=== PATIENT | male | born 1945 | race Caucasian/White ===

== ENCOUNTER 2017-02-09 22:31 | Emergency (ER) | payer SELFPAY ==
[2017-02-09] MEDS ORDERED: Lactated Ringers 1,000 ML IV ONE (22:41)
[2017-02-09] MEDS ORDERED: Sodium Chloride 0.9% 10 ML Syringe FLUSH PRN (22:41)
[2017-02-09 23:36] LABS: CHLORIDE,CL 105 mmol/L (98-107); SODIUM,NA 141 mmol/L (136-145)
--- NOTE | 2017-02-09 23:49 | EDM.PDOC ---
ED HPI GENERAL MEDICAL PROBLEM - General Chief Complaint: Gastrointestinal Problem Stated Complaint: diarrhea x 5 days Time Seen by Provider: 02/09/17 22:41 Source of Information: Reports: Patient History Limitations: Reports: No Limitations - History of Present Illness INITIAL COMMENTS - FREE TEXT/NARRATIVE: Patient reports having diarrhea for the last 5 days. This is why he is coming in. Reports some weakness, as well as some fatigue. He denies any nausea or vomiting. He is a mechanic industrial truck and thinks maybe he had a bad sandwich at a [employer] as sharp within 8 hours of having a sandwich she began having gastrointestinal distress with diarrhea. He states he's been taking some Pepto- Bismol over the last couple of days. He denies any fever, chills, headaches, shortness of breath, chest pain or pressure. He is a one half to one pack per day smoker. States that he rarely drinks alcohol with his stated intake is one or 2 beers per month. His occupation is a mechanic industrial truck and states that his primary provider is usually Jody Rosales but doesn't really follow up on a regular basis. He does state that he has high blood pressure, high cholesterol, diabetes. He states that he takes hydrochlorothiazide, metformin, furosemide, Victoza, and atorvastatin. He also states he takes a medication for his high blood pressure volodymyr unable to remember what it is. He denies being around anybody with similar symptoms within the last week but since he is a mechanic industrial truck he has contact with multiple people who may or may not know they're sick. His appearance is pale. Onset Date: 02/03/17 Duration: Improving Location: Reports: Abdomen Associated Symptoms: Reports: Other (diarrhea) Treatments PORTRAIT ARTIST: Reports: Other Medication(s) (pepto-bismol) ED ROS GENERAL - Review of Systems Review Of Systems: See Below Constitutional: Reports: No Symptoms HEENT: Reports: No Symptoms Respiratory: Reports: No Symptoms Cardiovascular: Reports: No Symptoms Endocrine: Reports: No Symptoms GI/Abdominal: Reports: Black Stool, Diarrhea : Reports: No Symptoms Musculoskeletal: Reports: No Symptoms Skin: Reports: No Symptoms Neurological: Reports: Dizziness Psychiatric: Reports: No Symptoms Hematologic/Lymphatic: Reports: No Symptoms Immunologic: Reports: No Symptoms ED EXAM, GI/ABD - Physical Exam Exam: See Below Exam Limited By: No Limitations General Appearance: Alert, WD/WN, Mild Distress Eyes: Bilateral: EOMI Ears: Normal TMs Nose: Normal Inspection, Normal Mucosa, No Blood Throat/Mouth: Normal Inspection, Normal Lips, Normal Teeth, Normal Gums, Normal Oropharynx, Normal Voice, No Airway Compromise Head: Atraumatic, Normocephalic Neck: Lymphadenopathy (L), Lymphadenopathy (R) (cervical lymph node enlargement) Respiratory/Chest: No Respiratory Distress, Lungs Clear, Normal Breath Sounds, No Accessory Muscle Use, Chest Non-Tender Cardiovascular: Normal Peripheral Pulses, Regular Rate, Rhythm, No Edema, No Gallop, No JVD, No Murmur, No Rub GI/Abdominal Exam: Normal Bowel Sounds, Soft, Non-Tender, No Organomegaly, No Distention, No Abnormal Bruit, No Mass, Pelvis Stable Back Exam: Normal Inspection, Full Range of Motion, NT Extremities: Normal Inspection, Normal Range of Motion, Non-Tender, Normal Capillary Refill, No Pedal Edema Neurological: Alert, Oriented, CN II-XII Intact, Normal Cognition, Normal Gait, Normal Reflexes, No Motor/Sensory Deficits Psychiatric: Normal Affect, Normal Mood Skin Exam: Warm, Dry, Intact, Normal Color, No Rash Course - Orders/Labs/Meds Orders: Active Orders 24 hr Category Date Time Status OCCULT BLD GASTRIC Stat Lab 02/09/17 23:50 Ordered ROTAVIRUS ANTIGEN [MREF] Stat Lab 02/09/17 22:42 Uncollected Sodium Chloride 0.9% [Saline Flush] Med 02/09/17 22:41 Ordered 10 ml FLUSH ASDIRECTED PRN Saline Lock Insert [OM.PC] Routine Oth 02/09/17 22:41 Ordered Medication Orders Sodium Chloride (Saline Flush) 10 ml FLUSH ASDIRECTED PRN PRN Reason: Keep Vein Open Labs: Laboratory Tests 02/09/17 02/09/17 Range/Units 22:41 22:41 WBC 18.2 H (4.0-10.0) x10^3/uL RBC 3.38 L (4.5-6.0) x10^6/uL Hgb 7.5 L* (14.0-18.0) g/dL Hct 25.6 L (40.0-52.0) % MCV 75.7 L (78.0-93.0) fL MCH 22.2 L (26.0-32.0) pg MCHC 29.3 L (32.0-36.0) g/dL RDW Coeff of Sam 16.5 H (10.0-15.0) % Plt Count 434 H (130-400) x10^3/uL Add Manual Diff Yes Neutrophils % (Manual) 54 (50-80) % Band Neutrophils % 14 H (0-6) % Lymphocytes % (Manual) 11 L (25-50) % Atypical Lymphs % 6 H (0) % Monocytes % (Manual) 6 (2-11) % Eosinophils % (Manual) 8 H (0-4) % Basophils % (Manual) 1 (0-1) % Platelet Estimate Increased H Hypochromasia 2+ moderate H Poikilocytosis 1+ slight H Anisocytosis 1+ slight H Microcytosis 1+ slight H Sodium 141 (136-145) mmol/L Potassium 2.9 L* (3.5-5.1) mmol/L Chloride 105 (98-107) mmol/L Carbon Dioxide 24 (21-32) mmol/L BUN 17 (7-18) mg/dL Creatinine 1.4 H (0.70-1.30) mg/dL Est Cr Clr Drug Dosing TNP Estimated GFR (MDRD) 50 Glucose 146 H (74-106) mg/dL Calcium 7.6 L (8.5-10.1) mg/dL Corrected Calcium 8.64 (8.5-10.1) mg/dL Magnesium 1.1 L (1.8-2.4) mg/dL Total Bilirubin 0.2 (0.2-1.0) mg/dL AST 15 (15-37) U/L ALT 21 (16-63) U/L Alkaline Phosphatase 86 (46-116) U/L Total Protein 6.2 L (6.4-8.2) g/dL Albumin 2.7 L (3.4-5.0) g/dL Globulin 3.5 Albumin/Globulin Ratio 0.77 Meds: Medications Generic Name Dose Route Start Last Admin Trade Name Freq PRN Reason Stop Dose Admin Sodium Chloride 10 ml 02/09/17 22:41 Saline Flush FLUSH ASDIRECTED PRN Keep Vein Open Discontinued Medications Generic Name Dose Route Start Last Admin Trade Name Freq PRN Reason Stop Dose Admin Lactated Ringer's 1,000 mls @ 999 mls/hr 02/09/17 22:41 02/09/17 22:45 Ringers, Lactated IV 02/09/17 23:41 999 mls/hr .BOLUS ONE Administration Magnesium Chloride 64 mg 02/10/17 00:03 Mag-64 PO 02/10/17 00:04 ONETIME ONE Potassium Chloride 40 meq 02/10/17 00:03 Klor-Con 10 PO 02/10/17 00:04 ONETIME ONE - Re-Assessments/Exams Free Text/Narrative Re-Assessment/Exam: 02/10/17 00:12 Patient given oral magnesium and potassium before departure for low magnesium of 1.1, low potassium of 2.9 Departure - Departure Time of Disposition: 00:32 Disposition: DC/Tfer to Acute Hospital 02 Condition: Good Clinical Impression: GI bleed - Discharge Information Instructions: Nausea and Vomiting, Adult, [id number] Referrals: Jody Rosales, AGILE JAVA DEVELOPER [Primary Care Provider] - Forms: ED Department Discharge, Interfacility Transfer EMTALA ED Communication - ED Communication Date/Time Date: 02/10/17 Time Called: 23:55 - Discussed Case With (1) Discussed Case With (1): Admitting Provider (Dr. Cordova at [facility] in [place] was given report and is the accepting provider.) - My Orders Last 24 Hours: My Active Orders 02/09/17 22:41 Sodium Chloride 0.9% [Saline Flush] 10 ml FLUSH ASDIRECTED PRN Saline Lock Insert [OM.PC] Routine 02/09/17 22:42 ROTAVIRUS ANTIGEN [MREF] Stat 02/09/17 23:50 OCCULT BLD GASTRIC Stat - Assessment/Plan Last 24 Hours: My Active Orders 02/09/17 22:41 Sodium Chloride 0.9% [Saline Flush] 10 ml FLUSH ASDIRECTED PRN Saline Lock Insert [OM.PC] Routine 02/09/17 22:42 ROTAVIRUS ANTIGEN [MREF] Stat 02/09/17 23:50 OCCULT BLD GASTRIC Stat
[2017-02-10] MEDS ORDERED: Potassium Chloride 10 MEQ Tab.ER PO ONE (00:03)
[2017-02-10] MEDS ORDERED: Magnesium Chloride 64 MG Tab.ER PO ONE (00:03)
== END 2017-02-10 00:50 | disposition short-term general hospital (02) ==
LOC: VM.ED 22:31
DX: K92.2 Gastrointestinal hemorrhage, unspecified (principal); F17.210 Nicotine dependence, cigarettes, uncomplicated
CPT/HCPCS: 80053; 83735; 85025; 96360; 99285; A9270; J7120; 99284-GF

== ENCOUNTER 2019-11-30 10:55 | Emergency (ER) | payer MEDICAID ==
[2019-11-30] MEDS ORDERED: Sodium Chloride 0.9% 10 ML Syringe FLUSH PRN (11:18)
--- NOTE | 2019-11-30 11:24 | EDM.PDOC ---
ED HPI GENERAL MEDICAL PROBLEM - General Chief Complaint: Chest Pain Stated Complaint: CHEST PAIN/SOB Time Seen by Provider: 11/30/19 11:00 Source of Information: Reports: Patient History Limitations: Reports: No Limitations - History of Present Illness INITIAL COMMENTS - FREE TEXT/NARRATIVE: Patient comes emergency department today from the clinic for further evaluation of shortness of breath chest pressure and tightness. This patient relates over the past 2 to 3 months he has slowly had increasing shortness of breath with physical exertion. 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 This is slowly been getting worse over the past 2 to 3 months. He has had about a 10 to 12 pound weight gain in the last 2 to 3 months as well. Over the past couple of days he has some tightness over his chest primarily with physical exertion. He has a pack-a-day smoker since he was 16 years of age. He has a dry hacking nonproductive cough. No fever no chills. No palpitations weakness dizziness lightheadedness. No abdominal pain nausea or vomiting. No hematuria dysuria or urinary frequency. He denies any black or tarry stools no bloody stools. He is on chronic iron supplementation for chronic iron deficiency anemia although he has never been evaluated with a colonoscopy. NO COVID exposure NO COVID symptoms. - Related Data Allergies Allergy/AdvReac Type Severity Reaction Status Date / Time bee venom protein (honey bee) Allergy Severe Anaphylactic Verified 11/30/19 11:22 Shock levofloxacin [From Levaquin] Allergy Intermediate Hives Verified 11/30/19 11:22 lisinopril AdvReac Mild Cough Verified 11/30/19 11:22 Home Meds: Home Meds Aspirin [Halfprin] 81 mg PO DAILY 02/17/17 [History] Ferrous Gluconate 1 tab PO DAILY 02/17/17 [History] Furosemide [Lasix] 20 mg PO DAILY 02/17/17 [History] Multivitamin with Minerals [Multivitamins with Minerals] 1 tab PO DAILY 02/17/17 [History] Potassium 99 mg PO ASDIRECTED 02/17/17 [History] amLODIPine [Norvasc] 10 mg PO DAILY 02/17/17 [History] metFORMIN HCl [Glucophage] 1,000 mg PO BIDMEALS 02/17/17 [History] FLUoxetine HCl [Prozac] 20 mg PO DAILY 01/12/19 [History] Folic Acid 0.4 mg PO DAILY 01/12/19 [History] hydroCHLOROthiazide [Hydrochlorothiazide] 12.5 mg PO DAILY 01/12/19 [History] Past Medical History HEENT History: Reports: None Cardiovascular History: Reports: Hypertension, Other (See Below) Other Cardiovascular History: lower leg edema Respiratory History: Reports: SOB Other Respiratory History: Smoker Gastrointestinal History: Reports: GERD Genitourinary History: Reports: None Musculoskeletal History: Reports: Back Pain, Chronic Neurological History: Reports: None Psychiatric History: Reports: Depression Endocrine/Metabolic History: Reports: Diabetes, Type II Hematologic History: Reports: Anemia, Iron Deficiency, Other (See Below) Other Hematologic History: hypomagnesia. hypopotassemia Immunologic History: Reports: None Oncologic (Cancer) History: Reports: None Dermatologic History: Reports: None - Infectious Disease History Infectious Disease History: Reports: None - Past Surgical History Head Surgeries/Procedures: Reports: None HEENT Surgical History: Reports: None Cardiovascular Surgical History: Reports: None GI Surgical History: Reports: None Male Surgical History: Reports: None Neurological Surgical History: Reports: None Musculoskeletal Surgical History: Reports: None Oncologic Surgical History: Reports: None Dermatological Surgical History: Reports: None Social & Family History - Tobacco Use Tobacco Use Status *Q: Current Every Day Tobacco User Years of Tobacco use: 55 Packs/Tins Daily: 1 - Caffeine Use Caffeine Use: Reports: Coffee, Energy Drinks, Tea Caffeine Use Comment: 3 cups of coffe a day ED ROS GENERAL - Review of Systems Review Of Systems: Comprehensive ROS is negative, except as noted in HPI. ED EXAM, GENERAL - Physical Exam Exam: See Below Exam Limited By: No Limitations General Appearance: Alert, WD/WN, Mild Distress (He has only able to speak in 5- 6 word sentences and is minimally dyspneic), Obese Eye Exam: Bilateral Eye: EOMI Ears: Normal External Exam Nose: Normal Inspection Throat/Mouth: Normal Inspection Head: Atraumatic, Normocephalic Neck: Normal Inspection, Supple, Non-Tender, Full Range of Motion Respiratory/Chest: No Respiratory Distress, Normal Breath Sounds, No Accessory Muscle Use, Chest Non-Tender, Crackles (Fine bibasilar crackles.), Wheezing (Expiratory bilaterally minimal). No: Rhonchi, Accessory Muscle Use Cardiovascular: Normal Peripheral Pulses, Regular Rate, Rhythm GI/Abdominal: Normal Bowel Sounds, Soft, Non-Tender (Male) Exam: Deferred Rectal (Males) Exam: Deferred Back Exam: Normal Inspection, Full Range of Motion Extremities: Normal Inspection, Pedal Edema (2+ pitting bilaterally) Neurological: Alert, Oriented, Normal Cognition, No Motor/Sensory Deficits Psychiatric: Normal Affect, Normal Mood Skin Exam: Warm, Dry, Intact, Normal Color, No Rash #1 Interpretation EKG Date: 11/30/19 Time: 11:05 Rhythm: NSR Rate (Beats/Min): 87 Leighton: Normal P-Wave: Present QRS: Normal ST-T: Normal QT: Normal Comparison: NA - No Prior EKG Course - Vital Signs Last Recorded V/S: Last Vital Signs Temp 98.1 F 11/30/19 13:26 Pulse 81 11/30/19 13:26 Resp 16 11/30/19 13:26 BP 159/88 H 11/30/19 13:26 Pulse Ox 99 11/30/19 13:26 - Orders/Labs/Meds Orders: Active Orders 24 hr Category Date Time Status EKG Documentation Completion [RC] STAT Care 11/30/19 11:12 Active RT Aerosol Therapy [RC] ASDIRECTED Care 11/30/19 11:28 Active Sodium Chloride 0.9% [Saline Flush] Med 11/30/19 11:18 Active 10 ml FLUSH ASDIRECTED PRN Blood Transfusion Reflex Orders [OM.PC] Routine Oth 11/30/19 11:47 Ordered Peripheral IV Insertion Adult [OM.PC] Stat Oth 11/30/19 11:12 Ordered Transfuse RBC [Transfuse Red Blood Cells] [COMM] Stat Oth 11/30/19 11:58 Ordered Medication Orders Sodium Chloride (Saline Flush) 10 ml FLUSH ASDIRECTED PRN PRN Reason: Keep Vein Open Labs: Laboratory Tests 11/30/19 11/30/19 11/30/19 Range/Units 11:30 11:30 11:30 WBC 14.0 H (4.0-10.0) x10^3/uL RBC 2.33 L (4.5-6.0) x10^6/uL Hgb 5.8 L* D (14.0-18.0) g/dL Hct 20.2 L (40.0-52.0) % MCV 86.7 D (78.0-93.0) fL MCH 24.9 L (26.0-32.0) pg MCHC 28.7 L (32.0-36.0) g/dL RDW Coeff of Sam 19.5 H (10.0-15.0) % Plt Count 463 H (130-400) x10^3/uL Add Manual Diff Yes Neutrophils % (Manual) 77 (50-80) % Lymphocytes % (Manual) 7 L (25-50) % Monocytes % (Manual) 4 (2-11) % Eosinophils % (Manual) 9 H (0-4) % Basophils % (Manual) 3 H (0-1) % Nucleated RBCs 1 (0-5) /100WBC Platelet Estimate Increased H Anisocytosis 2+ moderate H Macrocytosis 3+ marked H Spherocytes 2+ moderate H PT (9.5-12.3) SEC INR (2.0-3.5) APTT (25.6-32.8) SEC Sodium 139 (136-145) mmol/L Potassium 3.3 L (3.5-5.1) mmol/L Chloride 102 (98-107) mmol/L Carbon Dioxide 29 (21-32) mmol/L Anion Gap 11.3 (10-20) mmol/L BUN 27 H (7-18) mg/dL Creatinine 2.6 H D (0.70-1.30) mg/dL Est Cr Clr Drug Dosing TNP Estimated GFR (MDRD) 24 Glucose 126 H (74-106) mg/dL Calcium 8.4 L (8.5-10.1) mg/dL Corrected Calcium 9.52 (8.5-10.1) mg/dL Total Bilirubin 0.2 (0.2-1.0) mg/dL AST 14 L (15-37) U/L ALT 21 (16-63) U/L Alkaline Phosphatase 75 (46-116) U/L POC Troponin I (0.00-0.08) ng/mL NT-Pro-B Natriuret Pep 2124 H (<=125) pg/mL Total Protein 5.9 L (6.4-8.2) g/dL Albumin 2.6 L (3.4-5.0) g/dL Globulin 3.3 Albumin/Globulin Ratio 0.79 Stool Occult Blood (NEGATIVE) Blood Type A POSITIVE Gel Antibody Screen Negative Crossmatch See Detail 11/30/19 11/30/19 11/30/19 Range/Units 11:30 11:36 11:57 WBC (4.0-10.0) x10^3/uL RBC (4.5-6.0) x10^6/uL Hgb (14.0-18.0) g/dL Hct (40.0-52.0) % MCV (78.0-93.0) fL MCH (26.0-32.0) pg MCHC (32.0-36.0) g/dL RDW Coeff of Sam (10.0-15.0) % Plt Count (130-400) x10^3/uL Add Manual Diff Neutrophils % (Manual) (50-80) % Lymphocytes % (Manual) (25-50) % Monocytes % (Manual) (2-11) % Eosinophils % (Manual) (0-4) % Basophils % (Manual) (0-1) % Nucleated RBCs (0-5) /100WBC Platelet Estimate Anisocytosis Macrocytosis Spherocytes PT 10.0 (9.5-12.3) SEC INR 0.9 L (2.0-3.5) APTT 25.1 L (25.6-32.8) SEC Sodium (136-145) mmol/L Potassium (3.5-5.1) mmol/L Chloride (98-107) mmol/L Carbon Dioxide (21-32) mmol/L Anion Gap (10-20) mmol/L BUN (7-18) mg/dL Creatinine (0.70-1.30) mg/dL Est Cr Clr Drug Dosing Estimated GFR (MDRD) Glucose (74-106) mg/dL Calcium (8.5-10.1) mg/dL Corrected Calcium (8.5-10.1) mg/dL Total Bilirubin (0.2-1.0) mg/dL AST (15-37) U/L ALT (16-63) U/L Alkaline Phosphatase (46-116) U/L POC Troponin I 0.03 (0.00-0.08) ng/mL NT-Pro-B Natriuret Pep (<=125) pg/mL Total Protein (6.4-8.2) g/dL Albumin (3.4-5.0) g/dL Globulin Albumin/Globulin Ratio Stool Occult Blood positive (NEGATIVE) Blood Type Gel Antibody Screen Crossmatch Meds: Medications Generic Name Dose Route Start Last Admin Trade Name Freq PRN Reason Stop Dose Admin Sodium Chloride 10 ml 11/30/19 11:18 Saline Flush FLUSH ASDIRECTED PRN Keep Vein Open Discontinued Medications Generic Name Dose Route Start Last Admin Trade Name Freq PRN Reason Stop Dose Admin Albuterol/Ipratropium 3 ml 11/30/19 11:28 11/30/19 11:40 Duoneb 3.0-0.5 Mg/3 Ml NEB 11/30/19 11:29 3 ml ONETIME ONE Administration Furosemide 20 mg 11/30/19 12:28 11/30/19 12:38 Lasix IV 11/30/19 12:29 20 mg ONETIME ONE Administration Pantoprazole Sodium 80 mg 11/30/19 12:04 11/30/19 12:14 Protonix Iv IVPUSH 11/30/19 12:05 80 mg ONETIME ONE Administration - Radiology Interpretation Free Text/Narrative:: Chest x-ray per radiology shows cardiomegaly with borderline central vascular congestion. - Re-Assessments/Exams Free Text/Narrative Re-Assessment/Exam: 11/30/19 12:11 EKG shows a normal sinus rhythm without ST elevation or depression when reviewed extemporaneously by myself. His hemoglobin came back at 5.8. He has had a longstanding history of problems with iron deficiency in the past. Although he has never been worked up for his iron deficiency he has never had a colonoscopy. He relates that he has no black or tarry stools but he does take iron supplementation daily. His troponin is negative at 0.02. His chest x-ray shows cardiomegaly with borderline central vascular congestion. We will type and screen him for 1 unit of PRBCs at this time. Protonix 80 mg IV push. Lasix 20mg IVP. His Hemoccult is positive. His creatinine today is 2.6. Reviewing his charts in [facility] he had a creatinine of 2.43 3 months ago. There is no documentation of chronic kidney disease in his chart and the patient is unaware of any chronic kidney disease. 1 year ago his creatinine was 1.79. Protonix 80mg IVP Troponin negative. Pro-BNP mildly elevated. With his multiple issues going on with the anemia severe, lower GI bleed and CKD I called and spoke with DR. Galloway at [facility] in and she would like the patient transferred to . I called and spoke with Dr. Shin at [facility] in [place] in the ED. HPI ER COURSE findings and concerns were relayed to her verbally over the phone. Her questions were answered and she accepted him in transfer to [facility] in [place] with no new order. I discussed the plan of care with the patient and his . They are comfortable with this plan and their questions were answered. Departure - Departure Time of Disposition: 12:24 Disposition: DC/Tfer to [facility] 02 Clinical Impression: Lower GI bleed Anemia Qualifiers: Anemia type: unspecified type Qualified Code(s): D64.9 - Anemia, unspecified CKD (chronic kidney disease) stage 3, GFR 30-59 ml/min Qualifiers: Chronic kidney disease stage 3 subtype: stage 3b (GFR 30-44) Qualified Code(s): N18.32 - Chronic kidney disease, stage 3b CHF (congestive heart failure) Qualifiers: Heart failure type: high output Qualified Code(s): I50.83 - High output heart failure - Discharge Information Referrals: Umm Oneill, PATTERN TECHNICIAN [Primary Care Provider] - Forms: ED Department Discharge, Interfacility Transfer [facility] Sepsis Event Note (ED) - Evaluation Sepsis Screening Result: No Definite Risk - Focused Exam Vital Signs: Vital Signs Temp Temp Pulse Resp BP Pulse Ox Pulse Ox 11/30/19 13:26 98.1 F 81 16 159/88 H 99 11/30/19 13:11 97.8 F 80 18 158/75 H 96 11/30/19 12:58 97.9 F 78 20 159/61 H 96 11/30/19 12:12 88 20 144/53 H 92 L 11/30/19 12:00 95 11/30/19 11:00 98.3 F 86 24 H 162/55 H 95 - My Orders Last 24 Hours: My Active Orders 11/30/19 11:12 EKG Documentation Completion [RC] STAT Peripheral IV Insertion Adult [OM.PC] Stat 11/30/19 11:18 Sodium Chloride 0.9% [Saline Flush] 10 ml FLUSH ASDIRECTED PRN 11/30/19 11:28 RT Aerosol Therapy [RC] ASDIRECTED 11/30/19 11:47 Blood Transfusion Reflex Orders [OM.PC] Routine 11/30/19 11:58 Transfuse RBC [Transfuse Red Blood Cells] [COMM] Stat - Assessment/Plan Last 24 Hours: My Active Orders 11/30/19 11:12 EKG Documentation Completion [RC] STAT Peripheral IV Insertion Adult [OM.PC] Stat 11/30/19 11:18 Sodium Chloride 0.9% [Saline Flush] 10 ml FLUSH ASDIRECTED PRN 11/30/19 11:28 RT Aerosol Therapy [RC] ASDIRECTED 11/30/19 11:47 Blood Transfusion Reflex Orders [OM.PC] Routine 11/30/19 11:58 Transfuse RBC [Transfuse Red Blood Cells] [COMM] Stat Assessment:: Anemia severe, Lower GI bleed but also probably a component of chronic kidney disease. Lower GI bleed not any history of colonoscopy Congestive heart failure most likely due to high-output failure. CKD stage 3. Plan: Transfer to [facility] for further care management and work up.
[2019-11-30] MEDS ORDERED: Albuterol/Ipratropium 3.0-0.5 MG/3 ML Neb Soln NEB ONE (11:28)
--- NOTE | 2019-11-30 11:48 | CR ---
[id number] RAD/RAD Chest PA or AP 1V EXAM: FRONTAL CHEST INDICATION: SHORTNESS OF BREATH. COMPARISON: December 17, 2011. DISCUSSION: There is new cardiomegaly with borderline central vascular congestion. No definite infiltrates, but evaluation is somewhat limited by body habitus and portable technique. IMPRESSION: 1. Cardiomegaly with borderline central vascular congestion. Dago Mock MD 11/30/19 1146 Thank you for allowing us to participate in the care of your patient.
[2019-11-30 12:04] LABS: CHLORIDE,CL 102 mmol/L (98-107); SODIUM,NA 139 mmol/L (136-145)
[2019-11-30] MEDS ORDERED: Pantoprazole 40 MG Vial IVPUSH ONE (12:04)
[2019-11-30 12:09] LABS: ANION GAP 11.3 mmol/L (10-20)
[2019-11-30 12:22] LABS: PTT,PARTIAL THROMBOPLSTIN TIME 25.1 SEC (25.6-32.8)
[2019-11-30] MEDS ORDERED: Furosemide 20 MG/2 ML VIAL IV ONE (12:28)
== END 2019-11-30 14:00 | disposition short-term general hospital (02) ==
LOC: VM.ED 10:55
DX: K92.2 Gastrointestinal hemorrhage, unspecified (principal); I13.0 Hypertensive heart and chronic kidney disease with heart failure and stage 1 through stage 4 chronic kidney disease, or unspecified chronic kidney disease; I50.83 High output heart failure; N18.32 Chronic kidney disease, stage 3b; D63.1 Anemia in chronic kidney disease; E11.22 Type 2 diabetes mellitus with diabetic chronic kidney disease; F17.210 Nicotine dependence, cigarettes, uncomplicated; F32.9 Major depressive disorder, single episode, unspecified; E66.9 Obesity, unspecified; Z91.030 Bee allergy status; Z88.1 Allergy status to other antibiotic agents; Z79.82 Long term (current) use of aspirin; Z88.8 Allergy status to other drugs, medicaments and biological substances; Z79.84 Long term (current) use of oral hypoglycemic drugs
CPT/HCPCS: 36415; 36430; 71045; 80053; 82274; 83880; 84484; 85025; 85610; 85730; 86850; 86900; 86901; 86920; 86922; 93005; 93010; 94640; 96374; 96375; 99284; 99285-25; C9113; J1940; J7620-GY; P9016

== ENCOUNTER 2020-06-28 01:20 | Emergency (ER) | payer MEDICAID ==
[2020-06-28] MEDS ORDERED: Furosemide 20 MG/2 ML VIAL IV ONE (01:39)
[2020-06-28] MEDS ORDERED: Albuterol/Ipratropium 3.0-0.5 MG/3 ML Neb Soln NEB ONE (01:40)
--- NOTE | 2020-06-28 01:45 | EDM.PDOC ---
ED HPI GENERAL MEDICAL PROBLEM - General Chief Complaint: Respiratory Problem Stated Complaint: Shortness of breath, leg edema Time Seen by Provider: 06/28/20 01:25 Source of Information: Reports: Patient, Family History Limitations: Reports: No Limitations - History of Present Illness INITIAL COMMENTS - FREE TEXT/NARRATIVE: Patient presents with increased shortness of breath over the last 3 days patient attributes this to the increased swelling in his feet. He states today he just started having increased shortness of breath but got worse this afternoon and then to the night. He said overall he had been doing pretty well this weekend and actually came in and got his iron here through transfusion the other day with no issues. He says he takes his Lasix 5 mg twice a day like clockwork but he has noticed the swelling has not moved in the last couple of days and is actually gotten worse in the last 24 hours. Positive for ROA orthopnea which is chronic negative PND he denies any chest pain no fever cough He does not have home oxygen nor does he have any breathing treatments even though he does have a history of COPD and CHF. He has no other complaints at this time Duration: Day(s): Severity: Moderate Improves with: Reports: Other (Breathing treatments) Worsens with: Reports: Movement Context: Reports: Activity Associated Symptoms: Reports: Shortness of Breath. Denies: Confusion, Chest Pain, Cough, cough w sputum, Diaphoresis, Fever/Chills, Malaise, Nausea/Vomiting, Syncope, Weakness - Related Data Allergies Allergy/AdvReac Type Severity Reaction Status Date / Time bee venom protein (honey bee) Allergy Severe Anaphylactic Verified 06/28/20 01:38 Shock levofloxacin [From Levaquin] Allergy Intermediate Hives Verified 06/28/20 01:38 lisinopril AdvReac Mild Cough Verified 06/28/20 01:38 Home Meds: Home Meds Aspirin [Halfprin] 81 mg PO BEDTIME 02/17/17 [History] Furosemide [Lasix] 20 mg PO DAILY 02/17/17 [History] Multivitamin with Minerals [Multivitamins with Minerals] 1 tab PO DAILY 02/17/17 [History] Potassium 75 mg PO Q48H 02/17/17 [History] amLODIPine [Norvasc] 10 mg PO DAILY 02/17/17 [History] FLUoxetine HCl [Prozac] 40 mg PO DAILY 01/12/19 [History] Folic Acid 0.4 mg PO DAILY 01/12/19 [History] Ascorbate Calcium [Vitamin C] 500 mg PO BID 06/12/20 [History] Ferrous Sulfate 325 mg PO TIDMEALS 06/12/20 [History] Krill Oil 500 mg PO DAILY 06/12/20 [History] Magnesium 400 mg PO Q48H 06/12/20 [History] Nicotine [Nicoderm CQ] 7 mg TD DAILY 06/12/20 [History] hydrALAZINE [Apresoline] 50 mg PO TID 06/19/20 [History] Past Medical History HEENT History: Reports: None Cardiovascular History: Reports: Heart Failure, High Cholesterol, Hypertension, Other (See Below) Other Cardiovascular History: lower leg edema, left ventricular hypertrophy, diastolic dysfunction, bilat. carotid bruits Respiratory History: Reports: SOB, Other (See Below) Other Respiratory History: former smoker, snoring, mucopurulent chronic bronchitis Gastrointestinal History: Reports: GERD, Other (See Below) Other Gastrointestinal History: gastroenteritis Genitourinary History: Reports: None, Renal Calculus, Other (See Below) Other Genitourinary History: CKD stage 4 Musculoskeletal History: Reports: Back Pain, Chronic Neurological History: Reports: None Psychiatric History: Reports: Depression Endocrine/Metabolic History: Reports: Diabetes, Type II, Hypokalemia, Obesity/BMI 30+ Hematologic History: Reports: Anemia, Iron Deficiency, Other (See Below) Other Hematologic History: hypomagnesia. hypopotassemia Immunologic History: Reports: Other (See Below) Other Immunologic History: leukocytosis Oncologic (Cancer) History: Reports: Basal Cell Carcinoma Dermatologic History: Reports: None - Infectious Disease History Infectious Disease History: Reports: None - Past Surgical History Head Surgeries/Procedures: Reports: None HEENT Surgical History: Reports: None Cardiovascular Surgical History: Reports: None GI Surgical History: Reports: None Male Surgical History: Reports: None Neurological Surgical History: Reports: None Musculoskeletal Surgical History: Reports: None Oncologic Surgical History: Reports: None Dermatological Surgical History: Reports: None Social & Family History - Caffeine Use Caffeine Use: Reports: Coffee, Energy Drinks, Tea Caffeine Use Comment: 3 cups of coffe a day ED ROS GENERAL - Review of Systems Review Of Systems: See Below Constitutional: Reports: No Symptoms HEENT: Reports: No Symptoms Respiratory: Reports: Shortness of Breath. Denies: Wheezing, Pleuritic Chest Pain, Cough, Sputum, Hemoptysis Cardiovascular: Reports: Dyspnea on Exertion, Edema, Orthopnea. Denies: No Symptoms, Chest Pain, Blood Pressure Problem, Lightheadedness, Palpitations, PND , Syncope Endocrine: Reports: No Symptoms GI/Abdominal: Reports: No Symptoms : Reports: No Symptoms Musculoskeletal: Reports: No Symptoms Skin: Reports: No Symptoms Neurological: Reports: No Symptoms Psychiatric: Reports: No Symptoms Hematologic/Lymphatic: Reports: No Symptoms Immunologic: Reports: No Symptoms ED EXAM, GENERAL - Physical Exam Exam: See Below Exam Limited By: No Limitations General Appearance: Alert, WD/WN, No Apparent Distress, Other (No respiratory distress noted patient is talking 15 20 word sentences) Eye Exam: Bilateral Eye: EOMI, Normal Inspection, PERRL Ears: Normal External Exam, Hearing Grossly Normal Nose: Normal Inspection, Normal Mucosa, No Blood Throat/Mouth: Normal Inspection, Normal Lips, Normal Teeth, Normal Gums, Normal Oropharynx, Normal Voice, No Airway Compromise Neck: Normal Inspection, Supple, Non-Tender, Full Range of Motion Respiratory/Chest: No Respiratory Distress, No Accessory Muscle Use, Chest Non- Tender, Other (Patient does not have any wheezing but he has some mild scattered bilateral rales). No: Lungs Clear, Normal Breath Sounds Cardiovascular: Normal Peripheral Pulses, Regular Rate, Rhythm, No Gallop, No JVD, No Murmur, No Rub, Other (3+ bilateral pedal edema). No: No Edema GI/Abdominal: Normal Bowel Sounds, Soft, Non-Tender, No Organomegaly, No Distention, No Abnormal Bruit Extremities: Normal Inspection, Normal Range of Motion, Non-Tender, Normal Capillary Refill, Pedal Edema. No: No Pedal Edema Neurological: Alert, Oriented, CN II-XII Intact, Normal Cognition, Normal Gait Psychiatric: Normal Affect, Normal Mood Skin Exam: Warm, Dry, Intact, Normal Color, No Rash #1 Interpretation EKG Date: 06/28/20 Rhythm: NSR [place]: Normal P-Wave: Present QRS: Normal ST-T: Normal QT: Normal (nsr - acute) Course - Vital Signs Text/Narrative:: Called [facility] spoke with Dr. Juli Oscar in the ER he will accept the patient secondary to acute CHF BNP at 1392 CKD secondary to elevated BUN and creatinine at 39/3.3 last baseline here of creatinine was 2.6 patient has chronic anemia hemoglobin today is 6.7 last baseline we have here is 5.8 last time he left [facility] he said he was in the 12's Patient was rechecked after Lasix IV and nebulizers looks much better feels much better Last Recorded V/S: Last Vital Signs Temp 36.9 C 06/28/20 01:20 Pulse 120 H 06/28/20 01:20 Resp 24 H 06/28/20 01:20 BP 162/65 H 06/28/20 01:20 Pulse Ox 98 06/28/20 01:20 - Orders/Labs/Meds Orders: Active Orders 24 hr Category Date Time Status EKG 12 Lead [EKG Documentation Completion] [RC] URGENT Care 06/28/20 01:39 Active RT Aerosol Therapy [RC] ASDIRECTED Care 06/28/20 01:40 Active Chest 1V Frontal [CR] Stat Exams 06/28/20 01:38 Taken CORONAVIRUS COVID-19 RAPID [MOLEC] Routine Lab 06/28/20 02:45 Ordered Labs: Laboratory Tests 06/28/20 06/28/20 06/28/20 Range/Units 01:28 01:28 01:28 WBC 13.0 H (4.0-10.0) x10^3/uL RBC 2.30 L (4.5-6.0) x10^6/uL Hgb 6.7 L* (14.0-18.0) g/dL Hct 21.7 L (40.0-52.0) % MCV 94.3 H D (78.0-93.0) fL MCH 29.1 (26.0-32.0) pg MCHC 30.9 L (32.0-36.0) g/dL RDW Coeff of Sam 16.9 H (10.0-15.0) % Plt Count 420 H (130-400) x10^3/uL Add Manual Diff Yes Neutrophils % (Manual) 68 (50-80) % Lymphocytes % (Manual) 18 L (25-50) % Monocytes % (Manual) 8 (2-11) % Eosinophils % (Manual) 6 H (0-4) % Hypersegmented Neuts Rare H Platelet Estimate Increased H Giant Platelets Rare H Polychromasia 1+ slight H Hypochromasia 1+ slight H Anisocytosis 2+ moderate H Macrocytosis 1+ slight H Target Cells Rare Sodium 140 (136-145) mmol/L Potassium 4.2 (3.5-5.1) mmol/L Chloride 103 (98-107) mmol/L Carbon Dioxide 24 (21-32) mmol/L Anion Gap 17.2 H (5-15) mmol/L BUN 39 H (7-18) mg/dL Creatinine 3.3 H* (0.70-1.30) mg/dL Est Cr Clr Drug Dosing TNP Estimated GFR (MDRD) 19 Glucose 133 H (70-99) mg/dL Calcium 8.6 (8.5-10.1) mg/dL NT-Pro-B Natriuret Pep 1392 H (<=125) pg/mL Meds: Medications Discontinued Medications Generic Name Dose Route Start Last Admin Trade Name Freq PRN Reason Stop Dose Admin Albuterol/Ipratropium 3 ml 06/28/20 01:40 06/28/20 01:22 Albuterol/Ipratropium 3.0-0.5 Mg/3 Ml Neb Soln NEB 06/28/20 01:41 3 ml ONETIME ONE Administration Furosemide 20 mg 06/28/20 01:39 06/28/20 01:45 Furosemide 20 Mg/2 Ml Vial IV 06/28/20 01:40 20 mg ONETIME ONE Administration Departure - Departure Time of Disposition: 02:25 Disposition: DC/Tfer to Acute Hospital 02 Condition: Fair Clinical Impression: SOB (shortness of breath), CKD (chronic kidney disease) Anemia Qualifiers: Anemia type: unspecified type Qualified Code(s): D64.9 - Anemia, unspecified CHF (congestive heart failure) Qualifiers: Heart failure type: high output Qualified Code(s): I50.83 - High output heart failure - Discharge Information *PRESCRIPTION DRUG MONITORING PROGRAM REVIEWED*: No *COPY OF PRESCRIPTION DRUG MONITORING REPORT IN PATIENT GABBY: No Referrals: PCP,None [Primary Care Provider] - Forms: ED Department Discharge, Interfacility Transfer [facility] Sepsis Event Note (ED) - Focused Exam Vital Signs: Vital Signs Temp Pulse Resp BP Pulse Ox 06/28/20 01:20 36.9 C 120 H 24 H 162/65 H 98 - Problem List & Annotations (1) CHF (congestive heart failure) SNOMED Code(s): 53460655 Code(s): I50.9 - HEART FAILURE, UNSPECIFIED Status: Acute Current Visit: Yes Qualifiers: Heart failure type: high output Qualified Code(s): I50.83 - High output heart failure (2) CKD (chronic kidney disease) SNOMED Code(s): 383383558 Code(s): N18.9 - CHRONIC KIDNEY DISEASE, UNSPECIFIED Status: Acute Current Visit: Yes (3) SOB (shortness of breath) SNOMED Code(s): 997797772 Code(s): R06.02 - SHORTNESS OF BREATH Status: Acute Current Visit: Yes - My Orders Last 24 Hours: My Active Orders 06/28/20 01:38 Chest 1V Frontal [CR] Stat 06/28/20 01:39 EKG 12 Lead [EKG Documentation Completion] [RC] URGENT 06/28/20 01:40 RT Aerosol Therapy [RC] ASDIRECTED 06/28/20 02:45 CORONAVIRUS COVID-19 RAPID [MOLEC] Routine - Assessment/Plan Last 24 Hours: My Active Orders 06/28/20 01:38 Chest 1V Frontal [CR] Stat 06/28/20 01:39 EKG 12 Lead [EKG Documentation Completion] [RC] URGENT 06/28/20 01:40 RT Aerosol Therapy [RC] ASDIRECTED 06/28/20 02:45 CORONAVIRUS COVID-19 RAPID [MOLEC] Routine
[2020-06-28 02:11] LABS: CHLORIDE,CL 103 mmol/L (98-107); SODIUM,NA 140 mmol/L (136-145)
[2020-06-28 02:13] LABS: ANION GAP 17.2 mmol/L (5-15)
--- NOTE | 2020-06-28 08:46 | CR ---
[id number] RAD/RAD Chest PA or AP 1V EXAM: RAD Chest PA or AP 1V INDICATION: SHORTNESS OF BREATH, CHF WITH DIFFICULTY BREATHING COMPARISON: November 30, 2019. DISCUSSION: Cardiomediastinal silhouette is stable in size and contour. Central pulmonary vascular congestion. No pneumothorax or pleural effusion. No pulmonary infiltrate. IMPRESSION: Central pulmonary vascular congestion. Hi Ferreira DO 06/28/20 0844 Thank you for allowing us to participate in the care of your patient.
== END 2020-06-28 03:40 | disposition short-term general hospital (02) ==
LOC: VM.ED 01:20
DX: I13.0 Hypertensive heart and chronic kidney disease with heart failure and stage 1 through stage 4 chronic kidney disease, or unspecified chronic kidney disease (principal); E11.22 Type 2 diabetes mellitus with diabetic chronic kidney disease; N18.9 Chronic kidney disease, unspecified; I50.83 High output heart failure; D63.1 Anemia in chronic kidney disease; E66.9 Obesity, unspecified; E78.00 Pure hypercholesterolemia, unspecified; Z79.82 Long term (current) use of aspirin; Z79.899 Other long term (current) drug therapy; Z91.030 Bee allergy status; Z88.1 Allergy status to other antibiotic agents; Z88.8 Allergy status to other drugs, medicaments and biological substances; Z20.822 Contact with and (suspected) exposure to COVID-19
CPT/HCPCS: 71045; 80048; 83880; 85025; 93005; 93010; 94640; 96374; 99284; 99285-25; J1940; J7620-GY; U0002

== ENCOUNTER 2022-09-02 17:17 | Emergency (ER) | payer MEDICARE, MEDICAID ==
[2022-09-02 18:07] LABS: APPEARANCE,URINE CLEAR (CLEAR); BILIRUBIN,URINE NEGATIVE (NEGATIVE); COLOR,URINE YELLOW (YELLOW); GLUCOSE,URINE NEGATIVE (NEGATIVE); KETONES,URINE NEGATIVE (NEGATIVE); LEUKOCYTE ESTERASE,URINE NEGATIVE (NEGATIVE); NITRITE,URINE NEGATIVE (NEGATIVE); OCCULT BLOOD,URINE TRACE-INTACT (NEGATIVE); PROTEIN,URINE 100 mg/dL (NEGATIVE); UROBILINOGEN,URINE 0.2 EU/dL (0.2)
[2022-09-02 18:14] LABS: BACTERIA,URINE NOT SEEN /HPF (NOT SEEN); MUCUS,URINE OCCASIONAL /LPF (NOT SEEN); RBC,URINE 0-5 /HPF (NOT SEEN); SQUAMOUS EPITHELIAL CELLS,UR NOT SEEN /HPF (NOT SEEN); WBC,URINE 0-5 /HPF (NOT SEEN)
[2022-09-02 18:49] LABS: BASOPHILS ABSOLUTE AUTO 0.1 x10^3/uL (0.0-0.2); BASOPHILS PERCENT AUTO 0.7 % (0.2-1.2); EOSINOPHILS ABSOLUTE AUTO 0.3 x10^3/uL (0.0-0.5); EOSINOPHILS PERCENT AUTO 3.4 % (0.0-4.0); HEMATOCRIT 25.7 % (40.0-52.0); HEMOGLOBIN 8.9 g/dL (14.0-18.0); IMMATURE GRAN ABSOLUTE AUTO 0.16 x10^3/uL (0.00-0.07); LYMPHOCYTES ABSOLUTE AUTO 0.9 x10^3/uL (1.0-4.8); LYMPHOCYTES PERCENT AUTO 9.8 % (25.0-50.0); MEAN CORPUSCULAR HEMOGLOBIN 31.1 pg (26.0-32.0); MEAN CORPUSCULAR HGB CONC 34.6 g/dL (32.0-36.0); MEAN CORPUSCULAR VOLUME 89.9 fL (78.0-93.0); MONOCYTES ABSOLUTE AUTO 0.6 x10^3/uL (0.0-0.8); MONOCYTES PERCENT AUTO 7.1 % (2.0-11.0); NEUTROPHILS PERCENT AUTO 77.2 % (50.0-80.0); PLATELET COUNT,PLT 246 x10^3/uL (130-400); RED BLOOD CELL COUNT 2.86 x10^6/uL (4.5-6.0)
[2022-09-02 19:04] LABS: A/G RATIO 0.9; ALBUMIN 2.8 g/dL (3.4-5.0); BILIRUBIN TOTAL 0.3 mg/dL (0.2-1.0); C-REACTIVE PROTEIN 1.7 mg/dL (<=0.30); CALCIUM 7.2 mg/dL (8.5-10.1); EST CRCL DRUG DOSING (CG) 9.09 mL/min; POTASSIUM,K 4.4 mmol/L (3.5-5.1); PROTEIN TOTAL,TP 5.9 g/dL (6.4-8.2)
[2022-09-02 19:05] LABS: ANION GAP 19.4 mmol/L (5-15)
[2022-09-02 19:06] LABS: CREATININE 6.9 mg/dL (0.70-1.30)
== END 2022-09-02 20:09 | disposition home or self-care (01) ==
LOC: VM.ED 17:17
DX: R33.9 Retention of urine, unspecified (principal); I13.0 Hypertensive heart and chronic kidney disease with heart failure and stage 1 through stage 4 chronic kidney disease, or unspecified chronic kidney disease; E11.22 Type 2 diabetes mellitus with diabetic chronic kidney disease; N18.4 Chronic kidney disease, stage 4 (severe); I50.9 Heart failure, unspecified; D63.1 Anemia in chronic kidney disease; K21.9 Gastro-esophageal reflux disease without esophagitis; E66.9 Obesity, unspecified; Z68.38 Body mass index [BMI] 38.0-38.9, adult; Z88.8 Allergy status to other drugs, medicaments and biological substances; Z88.1 Allergy status to other antibiotic agents; Z91.030 Bee allergy status; Z79.899 Other long term (current) drug therapy; Z79.82 Long term (current) use of aspirin; Z87.891 Personal history of nicotine dependence
CPT/HCPCS: 36415; 80053; 81001; 85025; 86140; 99283; 99284

== ENCOUNTER 2022-09-04 02:20 | Emergency (ER) | payer MEDICARE, MEDICAID ==
[2022-09-04 04:22] VITALS: BP 154/66; PULSE 90
[2022-09-04 06:05] LABS: APPEARANCE,URINE CLEAR (CLEAR); BILIRUBIN,URINE NEGATIVE (NEGATIVE); COLOR,URINE YELLOW (YELLOW); GLUCOSE,URINE NEGATIVE (NEGATIVE); KETONES,URINE NEGATIVE (NEGATIVE); LEUKOCYTE ESTERASE,URINE NEGATIVE (NEGATIVE); NITRITE,URINE NEGATIVE (NEGATIVE); OCCULT BLOOD,URINE TRACE-INTACT (NEGATIVE); PROTEIN,URINE 100 mg/dL (NEGATIVE); UROBILINOGEN,URINE 0.2 EU/dL (0.2)
[2022-09-04 06:09] LABS: RBC,URINE 0-5 /HPF (NOT SEEN); SQUAMOUS EPITHELIAL CELLS,UR RARE /HPF (NOT SEEN); WBC,URINE 0-5 /HPF (NOT SEEN)
[2022-09-04 06:10] LABS: BACTERIA,URINE NOT SEEN /HPF (NOT SEEN); MUCUS,URINE NOT SEEN /LPF (NOT SEEN)
== END 2022-09-04 03:20 | disposition home or self-care (01) ==
LOC: VM.ED 02:20
DX: R33.9 Retention of urine, unspecified (principal); I13.0 Hypertensive heart and chronic kidney disease with heart failure and stage 1 through stage 4 chronic kidney disease, or unspecified chronic kidney disease; I50.9 Heart failure, unspecified; N18.9 Chronic kidney disease, unspecified; E78.00 Pure hypercholesterolemia, unspecified; K21.9 Gastro-esophageal reflux disease without esophagitis; E11.22 Type 2 diabetes mellitus with diabetic chronic kidney disease; E66.9 Obesity, unspecified; Z68.31 Body mass index [BMI] 31.0-31.9, adult; Z87.891 Personal history of nicotine dependence; Z79.82 Long term (current) use of aspirin; Z79.899 Other long term (current) drug therapy; Z88.1 Allergy status to other antibiotic agents; Z88.8 Allergy status to other drugs, medicaments and biological substances; Z91.030 Bee allergy status
CPT/HCPCS: 51702; 81001; 99284

== ENCOUNTER 2022-09-05 11:09 | Emergency (ER) | payer MEDICARE, MEDICAID | END 2022-09-05 13:20 | disposition home or self-care (01) | LOC: VM.ED 11:09 | DX: R33.9 Retention of urine, unspecified (principal); I13.0 Hypertensive heart and chronic kidney disease with heart failure and stage 1 through stage 4 chronic kidney disease, or unspecified chronic kidney disease; E11.22 Type 2 diabetes mellitus with diabetic chronic kidney disease; N18.9 Chronic kidney disease, unspecified; I50.9 Heart failure, unspecified; Z87.891 Personal history of nicotine dependence; E66.9 Obesity, unspecified; Z68.35 Body mass index [BMI] 35.0-35.9, adult; Z91.030 Bee allergy status; Z88.8 Allergy status to other drugs, medicaments and biological substances; Z88.1 Allergy status to other antibiotic agents; Z79.82 Long term (current) use of aspirin; Z79.899 Other long term (current) drug therapy | CPT/HCPCS: 99283 ==

== ENCOUNTER 2022-09-07 02:52 | Emergency (ER) | payer MEDICARE, MEDICAID ==
[2022-09-07] MEDS ORDERED: Sodium Chloride 0.9% 10 ML Syringe FLUSH PRN (03:09)
[2022-09-07] MEDS ORDERED: cefTRIAXone 1 GM Vial IVPUSH ONE (03:26)
[2022-09-07 03:29] LABS: BASOPHILS ABSOLUTE AUTO 0.1 x10^3/uL (0.0-0.2); BASOPHILS PERCENT AUTO 0.4 % (0.2-1.2); EOSINOPHILS ABSOLUTE AUTO 0.2 x10^3/uL (0.0-0.5); EOSINOPHILS PERCENT AUTO 1.4 % (0.0-4.0); HEMATOCRIT 26.4 % (40.0-52.0); HEMOGLOBIN 8.8 g/dL (14.0-18.0); LYMPHOCYTES PERCENT AUTO 7.3 % (25.0-50.0); MEAN CORPUSCULAR HEMOGLOBIN 30.1 pg (26.0-32.0); MEAN CORPUSCULAR HGB CONC 33.3 g/dL (32.0-36.0); MEAN CORPUSCULAR VOLUME 90.4 fL (78.0-93.0); MONOCYTES PERCENT AUTO 7.6 % (2.0-11.0); NEUTROPHILS ABSOLUTE AUTO 10.9 x10^3/uL (1.8-7.7); NEUTROPHILS PERCENT AUTO 82.5 % (50.0-80.0); PLATELET COUNT,PLT 286 x10^3/uL (130-400); RED BLOOD CELL COUNT 2.92 x10^6/uL (4.5-6.0); WHITE BLOOD CELL COUNT,WBC 13.2 x10^3/uL (4.0-10.0)
[2022-09-07 03:35] LABS: APPEARANCE,URINE CLEAR (CLEAR); BILIRUBIN,URINE NEGATIVE (NEGATIVE); COLOR,URINE LIGHT YELLOW (YELLOW); GLUCOSE,URINE NEGATIVE (NEGATIVE); KETONES,URINE NEGATIVE (NEGATIVE); LEUKOCYTE ESTERASE,URINE NEGATIVE (NEGATIVE); NITRITE,URINE NEGATIVE (NEGATIVE); OCCULT BLOOD,URINE NEGATIVE (NEGATIVE); PROTEIN,URINE NEGATIVE (NEGATIVE); UROBILINOGEN,URINE 0.2 EU/dL (0.2)
[2022-09-07 03:53] LABS: LACTIC ACID 1.6 mmol/L (0.4-2.0)
[2022-09-07 04:06] LABS: A/G RATIO 0.66; ALANINE AMINOTRANSFERASE,ALT 14 U/L (16-63); ALBUMIN 2.5 g/dL (3.4-5.0); ALKALINE PHOSPHATASE 142 U/L (46-116); ASPARTATE AMNIOTRANSFERASE,AST 18 U/L (15-37); BILIRUBIN TOTAL 0.2 mg/dL (0.2-1.0); BLOOD UREA NITROGEN,BUN 57 mg/dL (7-18); CARBON DIOXIDE,CO2 23 mmol/L (21-32); CHLORIDE,CL 102 mmol/L (98-107); GLUCOSE RANDOM 96 mg/dL (70-99); POTASSIUM,K 3.8 mmol/L (3.5-5.1); PROTEIN TOTAL,TP 6.3 g/dL (6.4-8.2); SODIUM,NA 141 mmol/L (136-145)
[2022-09-07 04:09] LABS: ANION GAP 19.8 mmol/L (5-15); CALCIUM 6.4 mg/dL (8.5-10.1); CREATININE 6.6 mg/dL (0.70-1.30); ESTIMATED GFR 8 mL/min (>=60)
[2022-09-07] MEDS ORDERED: Acetaminophen 325 MG Tab PO ONE (04:48)
[2022-09-07] MEDS ORDERED: Sodium Chloride 0.9% 1,000 ML IV SCH (06:15)
== END 2022-09-07 06:55 | disposition short-term general hospital (02) ==
LOC: VM.ED 02:52
DX: J18.9 Pneumonia, unspecified organism (principal); R06.02 Shortness of breath; R33.9 Retention of urine, unspecified; I13.0 Hypertensive heart and chronic kidney disease with heart failure and stage 1 through stage 4 chronic kidney disease, or unspecified chronic kidney disease; I50.9 Heart failure, unspecified; N18.9 Chronic kidney disease, unspecified; D63.1 Anemia in chronic kidney disease; J44.9 Chronic obstructive pulmonary disease, unspecified; K21.9 Gastro-esophageal reflux disease without esophagitis; E11.9 Type 2 diabetes mellitus without complications; E66.9 Obesity, unspecified; Z91.038 Other insect allergy status; Z88.1 Allergy status to other antibiotic agents; Z88.8 Allergy status to other drugs, medicaments and biological substances; Z79.82 Long term (current) use of aspirin; Z79.899 Other long term (current) drug therapy
CPT/HCPCS: 36415; 51702; 71046; 74176; 80053; 81003; 83605; 84145; 85025; 87040; 87086; 96361; 96374; 99285; A9270; J0696; J7030

== ENCOUNTER 2022-10-24 02:55 | Emergency (ER) | payer MEDICARE, MEDICAID ==
[2022-10-24 03:36] LABS: BASOPHILS PERCENT AUTO 0.4 % (0.2-1.2); EOSINOPHILS ABSOLUTE AUTO 0.4 x10^3/uL (0.0-0.5); EOSINOPHILS PERCENT AUTO 3.9 % (0.0-4.0); HEMATOCRIT 25.2 % (40.0-52.0); HEMOGLOBIN 8.1 g/dL (14.0-18.0); IMMATURE GRAN ABSOLUTE AUTO 0.12 x10^3/uL (0.00-0.07); LYMPHOCYTES ABSOLUTE AUTO 1.2 x10^3/uL (1.0-4.8); LYMPHOCYTES PERCENT AUTO 12.5 % (25.0-50.0); MEAN CORPUSCULAR HEMOGLOBIN 29.5 pg (26.0-32.0); MEAN CORPUSCULAR HGB CONC 32.1 g/dL (32.0-36.0); MEAN CORPUSCULAR VOLUME 91.6 fL (78.0-93.0); MONOCYTES ABSOLUTE AUTO 0.7 x10^3/uL (0.0-0.8); MONOCYTES PERCENT AUTO 7.6 % (2.0-11.0); NEUTROPHILS ABSOLUTE AUTO 7.3 x10^3/uL (1.8-7.7); NEUTROPHILS PERCENT AUTO 74.4 % (50.0-80.0); PLATELET COUNT,PLT 250 x10^3/uL (130-400); RED BLOOD CELL COUNT 2.75 x10^6/uL (4.5-6.0); WHITE BLOOD CELL COUNT,WBC 9.8 x10^3/uL (4.0-10.0)
[2022-10-24 04:04] LABS: A/G RATIO 0.74; ALBUMIN 2.6 g/dL (3.4-5.0); BILIRUBIN TOTAL 0.3 mg/dL (0.2-1.0); C-REACTIVE PROTEIN 2.93 mg/dL (<=0.30); EST CRCL DRUG DOSING (CG) 8.95 mL/min; POTASSIUM,K 4.4 mmol/L (3.5-5.1); PROTEIN TOTAL,TP 6.1 g/dL (6.4-8.2)
[2022-10-24 04:06] LABS: ANION GAP 17.4 mmol/L (5-15)
[2022-10-24 04:08] LABS: CALCIUM 6.6 mg/dL (8.5-10.1); CREATININE 6.9 mg/dL (0.70-1.30)
[2022-10-24] MEDS ORDERED: Furosemide 40 MG/4 ML VIAL IV ONE (04:09)
[2022-10-24 06:44] LABS: APPEARANCE,URINE CLOUDY (CLEAR); BILIRUBIN,URINE SMALL (NEGATIVE); COLOR,URINE BROWN (YELLOW); GLUCOSE,URINE NEGATIVE (NEGATIVE); KETONES,URINE NEGATIVE (NEGATIVE); LEUKOCYTE ESTERASE,URINE NEGATIVE (NEGATIVE); NITRITE,URINE NEGATIVE (NEGATIVE); OCCULT BLOOD,URINE LARGE (NEGATIVE); PROTEIN,URINE >=300 mg/dL (NEGATIVE); UROBILINOGEN,URINE 0.2 EU/dL (0.2)
[2022-10-24 06:52] LABS: BACTERIA,URINE NOT SEEN /HPF (NOT SEEN); MUCUS,URINE NOT SEEN /LPF (NOT SEEN); RBC,URINE PACKED /HPF (NOT SEEN); SQUAMOUS EPITHELIAL CELLS,UR NOT SEEN /HPF (NOT SEEN); WBC,URINE NOT SEEN /HPF (NOT SEEN)
== END 2022-10-24 07:15 | disposition home or self-care (01) ==
LOC: VM.ED 02:55
DX: I13.0 Hypertensive heart and chronic kidney disease with heart failure and stage 1 through stage 4 chronic kidney disease, or unspecified chronic kidney disease (principal); I50.83 High output heart failure; E11.40 Type 2 diabetes mellitus with diabetic neuropathy, unspecified; N18.9 Chronic kidney disease, unspecified; E66.9 Obesity, unspecified; K21.9 Gastro-esophageal reflux disease without esophagitis; J44.9 Chronic obstructive pulmonary disease, unspecified; E78.00 Pure hypercholesterolemia, unspecified; Z79.82 Long term (current) use of aspirin; Z79.899 Other long term (current) drug therapy; Z88.8 Allergy status to other drugs, medicaments and biological substances; Z88.1 Allergy status to other antibiotic agents; Z91.030 Bee allergy status; Z68.37 Body mass index [BMI] 37.0-37.9, adult
CPT/HCPCS: 36415; 71046; 80053; 81001; 83735; 83880; 85025; 86140; 96374; 99285-25; J1940

== ENCOUNTER 2022-11-17 09:56 | Emergency (ER) | payer MEDICARE, MEDICAID ==
[2022-11-17 10:20] LABS: BASOPHILS ABSOLUTE AUTO 0.1 x10^3/uL (0.0-0.2); BASOPHILS PERCENT AUTO 0.4 % (0.2-1.2); EOSINOPHILS ABSOLUTE AUTO 0.2 x10^3/uL (0.0-0.5); EOSINOPHILS PERCENT AUTO 1.6 % (0.0-4.0); HEMATOCRIT 22.8 % (40.0-52.0); HEMOGLOBIN 7.5 g/dL (14.0-18.0); IMMATURE GRAN ABSOLUTE AUTO 0.24 x10^3/uL (0.00-0.07); LYMPHOCYTES ABSOLUTE AUTO 1.1 x10^3/uL (1.0-4.8); LYMPHOCYTES PERCENT AUTO 8.5 % (25.0-50.0); MEAN CORPUSCULAR HGB CONC 32.9 g/dL (32.0-36.0); MONOCYTES ABSOLUTE AUTO 0.8 x10^3/uL (0.0-0.8); MONOCYTES PERCENT AUTO 6.2 % (2.0-11.0); NEUTROPHILS ABSOLUTE AUTO 10.7 x10^3/uL (1.8-7.7); NEUTROPHILS PERCENT AUTO 81.5 % (50.0-80.0); PLATELET COUNT,PLT 337 x10^3/uL (130-400); RED BLOOD CELL COUNT 2.59 x10^6/uL (4.5-6.0); WHITE BLOOD CELL COUNT,WBC 13.1 x10^3/uL (4.0-10.0)
[2022-11-17 10:36] LABS: A/G RATIO 0.76; ALANINE AMINOTRANSFERASE,ALT 12 U/L (16-63); ALBUMIN 2.6 g/dL (3.4-5.0); ALKALINE PHOSPHATASE 181 U/L (46-116); ASPARTATE AMNIOTRANSFERASE,AST 16 U/L (15-37); BILIRUBIN TOTAL 0.5 mg/dL (0.2-1.0); BLOOD UREA NITROGEN,BUN 42 mg/dL (7-18); C-REACTIVE PROTEIN 1.69 mg/dL (<=0.30); CARBON DIOXIDE,CO2 30 mmol/L (21-32); CHLORIDE,CL 99 mmol/L (98-107); GLUCOSE RANDOM 127 mg/dL (70-99); MAGNESIUM 1.3 mg/dL (1.8-2.4); POTASSIUM,K 4.5 mmol/L (3.5-5.1); SODIUM,NA 138 mmol/L (136-145)
[2022-11-17 10:40] LABS: ANION GAP 13.5 mmol/L (5-15); ESTIMATED GFR 9 mL/min (>=60)
== END 2022-11-17 11:18 | disposition home or self-care (01) ==
LOC: VM.ED 09:56
DX: R53.1 Weakness (principal); I13.0 Hypertensive heart and chronic kidney disease with heart failure and stage 1 through stage 4 chronic kidney disease, or unspecified chronic kidney disease; I50.9 Heart failure, unspecified; E11.22 Type 2 diabetes mellitus with diabetic chronic kidney disease; N18.9 Chronic kidney disease, unspecified; E83.42 Hypomagnesemia; R19.5 Other fecal abnormalities; E78.00 Pure hypercholesterolemia, unspecified; K21.9 Gastro-esophageal reflux disease without esophagitis; E66.9 Obesity, unspecified; Z87.891 Personal history of nicotine dependence; Z79.899 Other long term (current) drug therapy; Z91.030 Bee allergy status; Z88.1 Allergy status to other antibiotic agents; Z88.8 Allergy status to other drugs, medicaments and biological substances
CPT/HCPCS: 80053; 83735; 85025; 86140; 99285

== ENCOUNTER 2022-11-21 17:24 | Emergency (ER) | payer MEDICARE, MEDICAID ==
[2022-11-21 18:33] LABS: BASOPHILS ABSOLUTE AUTO 0.1 x10^3/uL (0.0-0.2); BASOPHILS PERCENT AUTO 0.4 % (0.2-1.2); EOSINOPHILS ABSOLUTE AUTO 0.1 x10^3/uL (0.0-0.5); EOSINOPHILS PERCENT AUTO 0.5 % (0.0-4.0); HEMATOCRIT 20.3 % (40.0-52.0); IMMATURE GRAN ABSOLUTE AUTO 0.38 x10^3/uL (0.00-0.07); LYMPHOCYTES ABSOLUTE AUTO 0.9 x10^3/uL (1.0-4.8); LYMPHOCYTES PERCENT AUTO 6.1 % (25.0-50.0); MEAN CORPUSCULAR VOLUME 90.6 fL (78.0-93.0); MONOCYTES ABSOLUTE AUTO 1.1 x10^3/uL (0.0-0.8); MONOCYTES PERCENT AUTO 7.2 % (2.0-11.0); NEUTROPHILS ABSOLUTE AUTO 12.8 x10^3/uL (1.8-7.7); NEUTROPHILS PERCENT AUTO 83.3 % (50.0-80.0); PLATELET COUNT,PLT 313 x10^3/uL (130-400); RED BLOOD CELL COUNT 2.24 x10^6/uL (4.5-6.0); WHITE BLOOD CELL COUNT,WBC 15.4 x10^3/uL (4.0-10.0)
[2022-11-21 18:41] LABS: HEMOGLOBIN 6.5 g/dL (14.0-18.0)
[2022-11-21 18:54] LABS: A/G RATIO 0.61; ALANINE AMINOTRANSFERASE,ALT 23 U/L (16-63); ALBUMIN 2.5 g/dL (3.4-5.0); ALKALINE PHOSPHATASE 219 U/L (46-116); ASPARTATE AMNIOTRANSFERASE,AST 19 U/L (15-37); BILIRUBIN TOTAL 0.4 mg/dL (0.2-1.0); BLOOD UREA NITROGEN,BUN 20 mg/dL (7-18); CALCIUM 8.4 mg/dL (8.5-10.1); CARBON DIOXIDE,CO2 35 mmol/L (21-32); CHLORIDE,CL 101 mmol/L (98-107); GLUCOSE RANDOM 94 mg/dL (70-99); MAGNESIUM 1.5 mg/dL (1.8-2.4); POTASSIUM,K 4.4 mmol/L (3.5-5.1); PROTEIN TOTAL,TP 6.6 g/dL (6.4-8.2); SODIUM,NA 141 mmol/L (136-145)
[2022-11-21 18:59] LABS: ANION GAP 9.4 mmol/L (5-15); ESTIMATED GFR 19 mL/min (>=60)
[2022-11-21 19:00] LABS: CREATININE 3.2 mg/dL (0.70-1.30)
== END 2022-11-21 21:00 | disposition short-term general hospital (02) ==
LOC: VM.ED 17:24
DX: K92.2 Gastrointestinal hemorrhage, unspecified (principal); D64.9 Anemia, unspecified; R19.5 Other fecal abnormalities; I13.0 Hypertensive heart and chronic kidney disease with heart failure and stage 1 through stage 4 chronic kidney disease, or unspecified chronic kidney disease; E11.22 Type 2 diabetes mellitus with diabetic chronic kidney disease; N18.32 Chronic kidney disease, stage 3b; I50.9 Heart failure, unspecified; E78.00 Pure hypercholesterolemia, unspecified; J44.9 Chronic obstructive pulmonary disease, unspecified; E66.9 Obesity, unspecified; Z68.30 Body mass index [BMI] 30.0-30.9, adult; Z87.891 Personal history of nicotine dependence; Z99.2 Dependence on renal dialysis; Z91.030 Bee allergy status; Z88.1 Allergy status to other antibiotic agents; Z88.8 Allergy status to other drugs, medicaments and biological substances; Z79.899 Other long term (current) drug therapy
CPT/HCPCS: 36415; 36430; 80053; 83735; 85025; 86850; 86900; 86901; 86920; 86922; 99285; P9016

== ENCOUNTER 2022-11-27 20:15 | Emergency (ER) | payer MEDICARE, MEDICAID ==
[2022-11-27 21:00] LABS: BASOPHILS ABSOLUTE AUTO 0.1 x10^3/uL (0.0-0.2); BASOPHILS PERCENT AUTO 0.4 % (0.2-1.2); EOSINOPHILS ABSOLUTE AUTO 0.5 x10^3/uL (0.0-0.5); EOSINOPHILS PERCENT AUTO 4.4 % (0.0-4.0); HEMATOCRIT 28.7 % (40.0-52.0); IMMATURE GRAN ABSOLUTE AUTO 0.43 x10^3/uL (0.00-0.07); LYMPHOCYTES ABSOLUTE AUTO 1.2 x10^3/uL (1.0-4.8); LYMPHOCYTES PERCENT AUTO 10.4 % (25.0-50.0); MEAN CORPUSCULAR HEMOGLOBIN 28.8 pg (26.0-32.0); MEAN CORPUSCULAR HGB CONC 31.4 g/dL (32.0-36.0); MEAN CORPUSCULAR VOLUME 91.7 fL (78.0-93.0); MONOCYTES ABSOLUTE AUTO 1.2 x10^3/uL (0.0-0.8); MONOCYTES PERCENT AUTO 9.7 % (2.0-11.0); NEUTROPHILS ABSOLUTE AUTO 8.4 x10^3/uL (1.8-7.7); NEUTROPHILS PERCENT AUTO 71.5 % (50.0-80.0); PLATELET COUNT,PLT 364 x10^3/uL (130-400); RED BLOOD CELL COUNT 3.13 x10^6/uL (4.5-6.0); WHITE BLOOD CELL COUNT,WBC 11.8 x10^3/uL (4.0-10.0)
[2022-11-27 21:21] LABS: A/G RATIO 0.63; ALANINE AMINOTRANSFERASE,ALT 22 U/L (16-63); ALBUMIN 2.4 g/dL (3.4-5.0); ALKALINE PHOSPHATASE 268 U/L (46-116); ASPARTATE AMNIOTRANSFERASE,AST 24 U/L (15-37); BILIRUBIN TOTAL 0.2 mg/dL (0.2-1.0); BLOOD UREA NITROGEN,BUN 27 mg/dL (7-18); C-REACTIVE PROTEIN 8.29 mg/dL (<=0.30); CALCIUM 8.2 mg/dL (8.5-10.1); CARBON DIOXIDE,CO2 31 mmol/L (21-32); CHLORIDE,CL 103 mmol/L (98-107); GLUCOSE RANDOM 120 mg/dL (70-99); PROTEIN TOTAL,TP 6.2 g/dL (6.4-8.2); SODIUM,NA 146 mmol/L (136-145)
[2022-11-27 21:22] LABS: ESTIMATED GFR 12 mL/min (>=60)
[2022-11-27 21:23] LABS: CREATININE 4.9 mg/dL (0.70-1.30)
[2022-11-27 21:46] LABS: BACTERIA,URINE POC NOT SEEN (NOT SEEN); MUCUS,URINE POC NOT SEEN (NOT SEEN); RBC,URINE POC >100 /HPF (NOT SEEN); SQUAMOUS EPITHELIAL CELLS,UR P NOT SEEN /HPF (NOT SEEN); WBC,URINE POC 0-5 /HPF (NOT SEEN)
== END 2022-11-27 22:08 | disposition home or self-care (01) ==
LOC: VM.ED 20:15
DX: I13.0 Hypertensive heart and chronic kidney disease with heart failure and stage 1 through stage 4 chronic kidney disease, or unspecified chronic kidney disease (principal); E11.22 Type 2 diabetes mellitus with diabetic chronic kidney disease; N18.32 Chronic kidney disease, stage 3b; I50.9 Heart failure, unspecified; D63.1 Anemia in chronic kidney disease; J44.9 Chronic obstructive pulmonary disease, unspecified; E78.00 Pure hypercholesterolemia, unspecified; E66.9 Obesity, unspecified; Z68.30 Body mass index [BMI] 30.0-30.9, adult; Z99.2 Dependence on renal dialysis; Z87.891 Personal history of nicotine dependence; Z91.030 Bee allergy status; Z88.1 Allergy status to other antibiotic agents; Z88.8 Allergy status to other drugs, medicaments and biological substances; Z79.899 Other long term (current) drug therapy
CPT/HCPCS: 36415; 72100; 80053; 81015; 85025; 86140; 87086; 87088; 87186; 99285

== ENCOUNTER 2023-02-23 10:58 | Emergency (ER) | payer MEDICARE, MEDICAID ==
[2023-02-23 12:03] LABS: CORONAVIRUS COVID-19 NAA NEGATIVE (NEGATIVE); INFLUENZA A NAA NEGATIVE (NEGATIVE); INFLUENZA B NAA NEGATIVE (NEGATIVE); RESPIRATORY SYNCYTIAL VIR NAA NEGATIVE (NEGATIVE)
== END 2023-02-23 12:17 | disposition home or self-care (01) ==
LOC: VM.ED 10:58
DX: J44.1 Chronic obstructive pulmonary disease with (acute) exacerbation (principal); E78.00 Pure hypercholesterolemia, unspecified; I10 Essential (primary) hypertension; K21.9 Gastro-esophageal reflux disease without esophagitis; E11.9 Type 2 diabetes mellitus without complications; E66.9 Obesity, unspecified
CPT/HCPCS: 0241U; 71045; 99284; 99285

== ENCOUNTER 2023-05-06 17:30 | Emergency (ER) | payer MEDICARE, MEDICAID | END 2023-05-06 17:53 | disposition home or self-care (01) | LOC: VM.ED 17:30 | DX: T82.898A Other specified complication of vascular prosthetic devices, implants and grafts, initial encounter (principal); I11.0 Hypertensive heart disease with heart failure; I50.9 Heart failure, unspecified; J44.9 Chronic obstructive pulmonary disease, unspecified; K21.9 Gastro-esophageal reflux disease without esophagitis; E78.00 Pure hypercholesterolemia, unspecified; E66.9 Obesity, unspecified; E11.9 Type 2 diabetes mellitus without complications; Z91.030 Bee allergy status; Z88.8 Allergy status to other drugs, medicaments and biological substances; Z79.899 Other long term (current) drug therapy | CPT/HCPCS: 99283 ==

== ENCOUNTER 2023-05-19 00:41 | Emergency (ER) | payer MEDICARE, MEDICAID ==
[2023-05-19] MEDS: Take Home: Acetaminophen/HYDROcodone 325-5 MG, 5 Tab Pack PO ONE (01:03)
== END 2023-05-19 01:10 | disposition home or self-care (01) ==
LOC: VM.ED 00:41
DX: G89.29 Other chronic pain (principal); M25.559 Pain in unspecified hip; I11.0 Hypertensive heart disease with heart failure; I50.9 Heart failure, unspecified; Z91.030 Bee allergy status; Z88.1 Allergy status to other antibiotic agents; Z88.8 Allergy status to other drugs, medicaments and biological substances; Z79.51 Long term (current) use of inhaled steroids; Z79.899 Other long term (current) drug therapy; J44.9 Chronic obstructive pulmonary disease, unspecified; E78.00 Pure hypercholesterolemia, unspecified; K21.9 Gastro-esophageal reflux disease without esophagitis; Z99.2 Dependence on renal dialysis; E11.9 Type 2 diabetes mellitus without complications
CPT/HCPCS: 93010; 99283; 99284; A9270-GY

== ENCOUNTER 2023-08-30 11:59 | Emergency (ER) | payer MEDICARE, MEDICAID ==
[2023-08-30] MEDS: Acetaminophen/HYDROcodone 325-5 MG Tab PO ONE (13:15)
== END 2023-08-30 13:50 | disposition home or self-care (01) ==
LOC: VM.ED 11:59
DX: S93.402A Sprain of unspecified ligament of left ankle, initial encounter (principal); S73.102A Unspecified sprain of left hip, initial encounter; I11.0 Hypertensive heart disease with heart failure; I50.9 Heart failure, unspecified; J44.9 Chronic obstructive pulmonary disease, unspecified; K21.9 Gastro-esophageal reflux disease without esophagitis; E11.9 Type 2 diabetes mellitus without complications; E66.9 Obesity, unspecified; Z79.899 Other long term (current) drug therapy; Z88.8 Allergy status to other drugs, medicaments and biological substances; Z91.030 Bee allergy status; Z88.1 Allergy status to other antibiotic agents; W19.XXXA Unspecified fall, initial encounter
CPT/HCPCS: 70450; 73502; 73610; 99283; 99284; A9270

== ENCOUNTER 2023-09-28 17:53 | Emergency (ER) | payer MEDICARE, MEDICAID ==
[2023-09-28 18:16] LABS: APPEARANCE,URINE CLOUDY (CLEAR); BILIRUBIN,URINE NEGATIVE (NEGATIVE); COLOR,URINE YELLOW (YELLOW); GLUCOSE,URINE NEGATIVE (NEGATIVE); KETONES,URINE NEGATIVE (NEGATIVE); LEUKOCYTE ESTERASE,URINE LARGE (NEGATIVE); NITRITE,URINE NEGATIVE (NEGATIVE); OCCULT BLOOD,URINE MODERATE (NEGATIVE); PH,URINE 7.5 (5.0-8.0); PROTEIN,URINE >=300 mg/dL (NEGATIVE); UROBILINOGEN,URINE 0.2 EU/dL (0.2)
[2023-09-28 18:28] LABS: BACTERIA,URINE FEW /HPF (NOT SEEN); MUCUS,URINE OCCASIONAL /LPF (NOT SEEN); WBC,URINE 75-100 /HPF (NOT SEEN)
[2023-09-28] MEDS: Ciprofloxacin 500 MG Tab PO ONE (18:55)
== END 2023-09-28 19:00 | disposition home or self-care (01) ==
LOC: VM.ED 17:53
DX: N30.01 Acute cystitis with hematuria (principal); I11.0 Hypertensive heart disease with heart failure; I50.9 Heart failure, unspecified; J44.9 Chronic obstructive pulmonary disease, unspecified; E11.9 Type 2 diabetes mellitus without complications; E66.9 Obesity, unspecified; E78.00 Pure hypercholesterolemia, unspecified; Z79.899 Other long term (current) drug therapy; Z91.030 Bee allergy status; Z88.1 Allergy status to other antibiotic agents; Z88.8 Allergy status to other drugs, medicaments and biological substances; Z68.27 Body mass index [BMI] 27.0-27.9, adult
CPT/HCPCS: 81001; 87086; 87088; 87147; 99283; A9270

== ENCOUNTER 2024-02-19 17:43 | Emergency (ER) | payer MEDICARE, MEDICAID ==
[2024-02-19 18:13] LABS: BASOPHILS PERCENT AUTO 0.3 % (0.2-1.2); EOSINOPHILS ABSOLUTE AUTO 0.3 x10^3/uL (0.0-0.5); EOSINOPHILS PERCENT AUTO 2.4 % (0.0-4.0); HEMATOCRIT 36.2 % (40.0-52.0); HEMOGLOBIN 12.6 g/dL (14.0-18.0); IMMATURE GRAN ABSOLUTE AUTO 0.13 x10^3/uL (0.00-0.07); LYMPHOCYTES ABSOLUTE AUTO 1.2 x10^3/uL (1.0-4.8); LYMPHOCYTES PERCENT AUTO 11.3 % (25.0-50.0); MEAN CORPUSCULAR HEMOGLOBIN 31.6 pg (26.0-32.0); MEAN CORPUSCULAR HGB CONC 34.8 g/dL (32.0-36.0); MEAN CORPUSCULAR VOLUME 90.7 fL (78.0-93.0); MONOCYTES ABSOLUTE AUTO 0.8 x10^3/uL (0.0-0.8); MONOCYTES PERCENT AUTO 7.5 % (2.0-11.0); NEUTROPHILS ABSOLUTE AUTO 8.3 x10^3/uL (1.8-7.7); NEUTROPHILS PERCENT AUTO 77.3 % (50.0-80.0); PLATELET COUNT,PLT 284 x10^3/uL (130-400); RED BLOOD CELL COUNT 3.99 x10^6/uL (4.5-6.0); WHITE BLOOD CELL COUNT,WBC 10.8 x10^3/uL (4.0-10.0)
[2024-02-19] MEDS: Albuterol/Ipratropium 3.0-0.5 MG/3 ML Neb Soln NEB ONE (18:22)
[2024-02-19 18:40] LABS: A/G RATIO 0.78; ALANINE AMINOTRANSFERASE,ALT 13 U/L (16-63); ALBUMIN 3.1 g/dL (3.4-5.0); ALKALINE PHOSPHATASE 103 U/L (46-116); ASPARTATE AMNIOTRANSFERASE,AST 16 U/L (15-37); BILIRUBIN TOTAL 0.6 mg/dL (0.2-1.0); BLOOD UREA NITROGEN,BUN 13 mg/dL (7-18); CALCIUM 9.6 mg/dL (8.5-10.1); CARBON DIOXIDE,CO2 29 mmol/L (21-32); CHLORIDE,CL 96 mmol/L (98-107); GLUCOSE RANDOM 124 mg/dL (70-99); MAGNESIUM 1.4 mg/dL (1.8-2.4); POTASSIUM,K 3.6 mmol/L (3.5-5.1); PROTEIN TOTAL,TP 7.1 g/dL (6.4-8.2); SODIUM,NA 137 mmol/L (136-145)
[2024-02-19 18:43] LABS: ANION GAP 15.6 mmol/L (5-15); ESTIMATED GFR 17 mL/min (>=60)
[2024-02-19 18:45] LABS: CREATININE 3.5 mg/dL (0.70-1.30)
[2024-02-19 19:01] LABS: PRO B-TYPE NATRIUR PEPT,BNPPRO 32883 pg/mL (<=450)
[2024-02-19] MEDS: methylPREDNISolone Sodium Succinate 125 MG/2 ML SDV IVPUSH ONE (19:14)
[2024-02-19] MEDS: Sodium Chloride 0.9% 10 ML Syringe FLUSH PRN (19:15)
[2024-02-19] MEDS: Amoxicillin/Clavulanate K 500-125 MG Tab PO ONE (20:10)
== END 2024-02-19 20:25 | disposition home or self-care (01) ==
LOC: VM.ED 17:43
DX: J20.9 Acute bronchitis, unspecified (principal); I11.0 Hypertensive heart disease with heart failure; I50.9 Heart failure, unspecified; E78.00 Pure hypercholesterolemia, unspecified; J44.9 Chronic obstructive pulmonary disease, unspecified; K21.9 Gastro-esophageal reflux disease without esophagitis; E11.9 Type 2 diabetes mellitus without complications; E66.9 Obesity, unspecified; Z68.29 Body mass index [BMI] 29.0-29.9, adult; Z88.8 Allergy status to other drugs, medicaments and biological substances; Z91.030 Bee allergy status; Z79.51 Long term (current) use of inhaled steroids; Z79.899 Other long term (current) drug therapy
CPT/HCPCS: 36415; 80053; 82947; 83735; 83880; 85025; 87428-QW; 94640; 96374; 99285-25; A9270-GY; J2919; J7620-GY